=== PATIENT | female | born 1965 | race Caucasian/White ===

== ENCOUNTER 2020-06-02 08:30 | Outpatient (CLI) | payer OTHER, SELFPAY | END 2020-06-02 08:31 | LOC: ANHCOVIDVC 08:30 | PROVIDERS: PCP Family Medicine | DX: Z23 Encounter for immunization (principal) | CPT/HCPCS: 0001A; 91300 ==

== ENCOUNTER 2020-06-23 08:22 | Outpatient (CLI) | payer OTHER, SELFPAY | END 2020-06-23 08:23 | disposition home or self-care (01) | LOC: ANHCOVIDVC 08:22 | PROVIDERS: PCP Family Medicine | DX: Z23 Encounter for immunization (principal) | CPT/HCPCS: 0002A; 91300 ==

== ENCOUNTER 2022-03-01 19:17 | Emergency (ER) | payer OTHER, SELFPAY ==
--- NOTE | ~2022-03-01 | XR_ITS ---
EXAMINATION: XR chest 1V portable Exam Date/Time: 03/01/2022 20:16 GROUND WOOD SUPERVISOR HISTORY: Dysphagia x 1 day hx esophageal surgeries to remove food Comparison: None available. RESULT: Lines, tubes, and devices: None. Lungs and pleura: Clear. Cardiomediastinal silhouette: Unremarkable. Other: No acute osseous or upper abdominal finding. IMPRESSION: No acute cardiopulmonary process. Reviewed, dictated and finalized at location K. [place] WOOD SUPERVISOR
[2022-03-01 19:34] VITALS: BP 140/88; PULSE 90; RESP 16; TEMP 36.9; O2SAT 98
--- NOTE | 2022-03-01 19:52 | ED.GENADULT ---
HPI - General Adult General Chief complaint: Unspecified Stated complaint: feels like something is stuck in throat Source: patient Mode of arrival: ambulatory Limitations: no limitations History of Present Illness HPI narrative: 57-year-old female with a history of esophageal stricture presents to the ER with -- dysphagia since yesterday. Today the patient presents with food stuck in her throat. She is unable to drink any solids or liquids. No vomiting. No abdominal pain. She had stricture of the esophagus which was dilated in July of this year. No coughing or aspiration of food. Onset (ago): day(s) ( Difficulties swallowing started yesterday.) Relieving factors: none Exacerbating factors: none Related Data Home Medications Medication Instructions Recorded Confirmed pantoprazole 40 mg tablet,delayed 40 mg PO DAILY 03/01/22 03/01/22 release Allergies Allergy/AdvReac Type Severity Reaction Status Date / Time Penicillins Allergy Unknown Verified 10/05/12 12:48 Review of Systems Review of Systems: All systems reviewed & are unremarkable except as noted in HPI and below Constitutional: Constitutional: Reports as per HPI and Reports no additional constitutional complaints Eyes: Eyes: Reports as per HPI and Reports no additional eye complaints ENT: Reports system reviewed and no additional complaints, except as documented and Reports as per HPI Cardiovascular: Cardiovascular: Reports as per HPI and Reports no additional cardiovascular complaints Respiratory: Respiratory: Reports as per HPI and Reports no additional respiratory complaints Gastrointestinal: Gastrointestinal: Reports as per HPI and Reports no additional gastrointestinal complaints Comments: Dysphagia with food stuck in her throat. On attempting to drink fluids she regurgitates the fluids out. Genitourinary: Genitourinary: Reports no additional female genitourinary complaints and Reports as per HPI Musculoskeletal: Musculoskeletal: Reports no additional musculoskeletal complaints and Reports as per HPI Integumentary/Breasts: Skin/Breast: Reports system reviewed and no additional complaints, except as docu and Reports as per HPI Neurologic: Reports system reviewed and no additional complaints, except as documented and Reports as per HPI Psychiatric: Psychiatric: Reports no additional psychiatric complaints and Reports as per HPI Endocrine: Endocrine: Reports no additional endocrine complaints and Reports as per HPI Hematologic/Lymphatic: Hematologic/Lymphatic: Reports no additional hematologic/lymphatic complaints and Reports as per HPI Allergic/Immunologic: Allergic/Immunologic: Reports no additional allergic/immunologic complaints and Reports as per HPI [facility] Past Medical History Medical History (Updated 03/01/22 @ 21:21 by Ham Potter MD) FH: cholecystectomy Surgical History Surgical History (Updated 03/01/22 @ 20:03 by Ham Potter MD) Gastric bypass status for obesity H/O: hysterectomy S/P dilatation of esophageal stricture Family History Family History (Updated 10/17/15 @ 23:19 by DOCTOR UNKNOWN) Grandparent Family history of malignant neoplasm, Onset Age: 80 Mother Family history of diabetes mellitus in first degree relative Social History Social History Smoking status: Never smoker Alcohol intake: current Exam Const: General: healthy appearing and no acute distress Nutritional Appearance: well nourished and obese Orientation/consciousness: patient oriented x3 Limitations: no limitations HENMT: Head: normal to inspection Ears: external ears normal Face/Nose/Sinus: Normal external nose present Face and sinus: normal facial exam Mouth: Yes Normal oral and palatal mucosa present Throat: posterior oropharynx normal Eyes: Conjunctivae: conjunctivae normal Pupils: Equal, round and reactive pupils present EOM: EOMs intact bilaterally Direct Ophthalmoscopy: no photophobia Neck:
--- NOTE | 2022-03-01 20:04 | ECG_ITS ---
Measurements Intervals [place] Rate: 58 P: 16 DE: 164 QRS: -13 QRSD: 102 T: 1 QT: 426 QTc: 421 Interpretive Statements SINUS BRADYCARDIA NO PREVIOUS ECG AVAILABLE FOR COMPARISON Electronically Signed On 03-02-2022 19:15:31 SOFTBALL COACH by Connie Wolff M.D.
[2022-03-01 20:30] LABS: Basophils Absolute Auto 0.04 K/mm3 (0.00-0.10); Basophils Percent Auto 0.7 % (0.0-1.0); Eosinophils Absolute Auto 0.41 K/mm3 (0.02-0.50); Eosinophils Percent Auto 6.8 % (1.0-6.0); Hematocrit 41.9 % (35.0-49.0); Hemoglobin 13.9 g/dL (12.0-15.0); Immature Granulocyte Absolute 0.01 K/mm3 (0.00-0.00); Immature Granulocyte Percent A 0.2 % (0.0-0.0); Lymphocytes Absolute Auto 2.26 K/mm3 (1.10-4.50); Lymphocytes Percent Auto 37.7 % (18.0-42.0); Mean Corpuscular HGB Conc 33.2 g/dL (32.0-36.0); Mean Corpuscular Hemoglobin 29.8 pg (27.0-31.0); Mean Corpuscular Volume 89.9 fL (78.0-102.0); Mean Platelet Volume 11.2 fl (9.2-11.8); Monocytes Absolute Auto 0.46 K/mm3 (0.10-0.90); Monocytes Percent Auto 7.7 % (2.0-11.0); Neutrophils Absolute Auto 2.8 K/mm3 (1.7-7.2); Neutrophils Percent Auto 46.9 % (50.0-70.0); Platelet Count Result 235 K/mm3 (150-420); Red Blood Count 4.66 M/mm3 (4.20-5.40); Red Cell Distribution Width 13.1 % (11.6-14.4)
[2022-03-01 20:44] LABS: Partial Thromboplastin Time 30.5 SEC (23.90-30.70); Prothrombin Time 10.9 Seconds (9.50-12.10)
[2022-03-01 20:45] LABS: Add Urine Microscopic? YES; Appearance Urine Clear (Clear); Bilirubin Urine Negative (Negative); Blood Urine Negative (Negative); Color Urine Light Yellow (Yellow); Glucose Urine UA Negative (Negative); Ketones Urine Negative (Negative); Leukocyte Esterase Ur Trace LEU/UL (Negative); Nitrate Urine Negative (Negative); Protein Urine Negative (Negative); Specific Grav Ur <= 1.005 (1.010-1.020); Urobilinogen Urine 0.2 mg/dL (0.2-1.0)
[2022-03-01 20:47] LABS: Alanine Aminotransferase 30 U/L (14-59); Albumin Level 3.6 g/dL (3.4-5.0); Alkaline Phosphatase 87 U/L (46-116); Anion Gap 8 mmol/L (8-16); Aspartate Amino Transferase 11 U/L (15-37); Bilirubin,Total 0.3 mg/dL (0.00-1.00); Blood Urea Nitrogen 9 mg/dL (7-18); Calcium 8.7 mg/dL (8.5-10.1); Carbon Dioxide 27 mmol/L (21-32); Chloride 107 mmol/L (98-108); Estimated CRCL calculation 83 ml/min; Estimated Glomerular Filt Rate > 60; Glucose 124 mg/dL (70-99); Lactic Acid Reflex 1.5 mmol/L (0.4-2.0); Lipase 228 U/L (73-393); Osmolality Calculated 293 mOsm/kg (285-295); Sodium 142 mmol/L (136-145); Troponin I 7.6 ng/L (0.00-60.4)
[2022-03-01 20:50] LABS: Bacteria Urine None seen /hpf; RBC Urine 0-2 /hpf (0-2); Squamous Epithelial Cell Urine Rare /hpf (Few); WBC Urine 0-3 /hpf (0-3)
[2022-03-01] MEDS: LACTATED RINGERS 1,000 ML 100 ML IV CONT (21:40)
[2022-03-01 21:56] VITALS: BP 140/66; PULSE 60; RESP 16; TEMP 37; O2SAT 98
[2022-03-01 23:37] VITALS: BP 124/56; PULSE 56; RESP 16; TEMP 36.5; O2SAT 96
--- NOTE | 2022-03-01 23:59 | PC.NURSE ---
pt alert and oriented. no shortness of breath noted. no respiratory distress noted.
== END 2022-03-02 | disposition short-term general hospital (02) ==
PROVIDERS: Emergency Provider Internal Medicine Critical Care Medicine
DX: R13.10 Dysphagia, unspecified (principal); K22.2 Esophageal obstruction
CPT/HCPCS: 36415; 71045; 80053; 81001; 83605; 83690; 84484; 85025; 85610; 85730; 93005; 96360; 96361; 99285; J7120

== ENCOUNTER 2024-10-13 07:32 | Outpatient (CLI) | payer OTHER, SELFPAY ==
--- OUTSIDE RECORDS SUMMARY | 2024-10-13 07:44 | XMS_ITS | Encounter Summary ---
Author Organization [facility] Address [address] [place] [address] Care Team Providers Care Tub Rider Name Role Phone Rosei Carmichael MD Primary Care Provider [phone] Encounter Details Date Type Department Care Team (Late st Contact Info) Description 11/10/2017 [address] [place] [address] Reza Harmon MD [address] [place] [address] Social History Tobacco Use Types Packs/Day Years Used Date Smoking Tobacco: Never Smokeless Tobacco: Never Alcohol Use Standard Drinks/Week Comments No 0 (1 standard drink = 0.6 oz pur e alcohol) Comments No Sex and Gender Information Value Date Recorded Sex Assigned at Not on file Legal Sex Female 10:28 AM CDT Gender Identity Not on file Sexual Orientation Not on file documented as of this encounter Plan of Treatment Not on file documented as of this encounter Visit Diagnoses Not on filedocumented in this encounter Care Teams Tub Rider Relationship Specialty Start Date End Date Rosie Carmichael MD PCP - General Family Practice 09/15/17 documented as of this encounter
--- OUTSIDE RECORDS SUMMARY | 2024-10-13 07:44 | XMS_ITS | Encounter Summary ---
Author Organization [facility] Address [address] [place] [address] Phone Care Team Providers Care Experimental Display Builder Name Role Phone Rosie Carmichael MD Primary Care Provider [phone] Lubna Yousif MD Unavailable [phone] Rossana Ansari APRN, SHEET ROCK FINISHER Unavailable Reason for Visit * Reason Comments Medication Refill Encounter Details Date Type Department Care Team (Late st Contact Info) Description 12/29/2022 Refill [facility] [address] [place] [address] Lubna Yousif MD [address] [place] [address] Medication Refill Social History Tobacco Use Types Packs/Day Years Used Date Smoking Tobacco: Never Smokeless Tobacco: Never Alcohol Use Standard Drinks/Week Comments Not Currently 0 (1 standard drink = 0.6 oz pur e alcohol) Sexually Active Control Partners Comments Not Currently Comments No Sex and Gender Information Value Date Recorded Sex Assigned at Not on file Legal Sex Female 10:41 PM CDT Gender Identity Not on file Sexual Orientation Not on file documented as of this encounter Miscellaneous Notes * Telephone Encounter - Raven Woodard RN - 12/30/2022 8:48 AM CDT Medication refilled and signed per [facility] chronic medication standing order for pediatric and adult patients. documented in this encounter Plan of Treatment Not on file documented as of this encounter Visit Diagnoses Not on filedocumented in this encounter Care Teams Experimental Display Builder Relationship Specialty Start Date End Date Rosie Carmichael MD [address] [place] [address] [place] [address] PCP - General Sand Tester 04/08/21 Lubna Yousif MD [address] [place] [address] Consulting Physician Gastroenterology 06/04/21 Rossana Ansari APRN, SHEET ROCK FINISHER [address] [place] [address] Nurse Practitioner Advanced Practice Nurse 03/22/24 documented as of this encounter
--- OUTSIDE RECORDS SUMMARY | 2024-10-13 07:44 | XMS_ITS | Clinical Summary ---
Author Organization [facility] Address [address] [facility] [address] [place] [address] Phone Care Team Providers Care Extractive Metallurgist Name Role Phone Rosie Carmichael MD Primary Care Provider [phone] Allergies Active Allergy Reactions Criticality Noted Date Comments Penicillins Rash Low 09/15/2017 Medications omeprazole (PriLOSEC) 40 mg Capsule, Delayed Release(E.C.) Take 40 mg by mouth daily. Active HYDROcodone-acet aminophen (HYCET) 7.5-325 mg/15 mL Solution Take 15 mL by mouth every 6 hours as needed for Pain, Severe. Max Daily Amount: 60 mL 300 mL 10/06/2017 2:06 PM CDT 10/05/2017 Active ondansetron (ZOFRAN ODT) 4 mg Tablet, Rapid Dissolve Place 1 Tablet (4 mg) under tongue every 6 hours as needed for Nausea. 10 Tablet 10/06/2017 2:06 PM CDT 10/05/2017 Active Active Problems Problem Noted Date Diagnosed Date Type 2 diabetes mellitus wit hout complication, without long-term current use of insulin 10/05/2017 Gastroesophageal reflux disease without esophagi tis 10/05/2017 Family History Medical History Relation Name Comments Diabetes Mother Relation Name Status Comments Father Alive Mother Alive Social History Tobacco Use Types Packs/Day Years Used Date Smoking Tobacco: Never Smokeless Tobacco: Never Alcohol Use Standard Drinks/Week Comments No 0 (1 standard drink = 0.6 oz pur e alcohol) Comments No Sex and Gender Information Value Date Recorded Sex Assigned at Not on file Legal Sex Female 10:28 AM CDT Gender Identity Not on file Sexual Orientation Not on file Last Filed Vital Signs Vital Sign Reading Time Taken Comments Blood Pressure 153/92 10/06/2017 4:00 PM CDT Pulse 96 10/06/2017 4:00 PM CDT Temperature 37.1 C (98.8 F) 10/06/2017 4:00 PM CDT Respiratory Rate 18 10/06/2017 4:00 PM CDT Oxygen Saturation 100% 10/06/2017 4:00 PM CDT Inhaled Oxygen Concentration - - Weight 139.7 kg (308 lb) 10/05/2017 11:05 AM CDT Height 165.1 cm (5' 5) 10/05/2017 11:05 AM CDT Body Mass Index 51.25 10/05/2017 11:05 AM CDT Plan of Treatment Health Maintenance Due Date Last Done Comments DIABETES ANNUAL FOOT EXAM 1985 DIABETES ANNUAL RETINAL EXAM 1985 DIABETES MICROALBUMIN ANNUAL SCREEN 1985 LDL CHOLESTEROL ANNUAL 1985 DTAP/TDAP/TD VACCINES (1 - Tdap) 1986 HEPATITIS B VACCINES (1 of 3 - 19+ 3-dose series) 1986 HPV/Cotest (21-29) 02/17/1988 CERVICAL CANCER SCREENING 1997 HPV/Cotest (30-65) 1997 PAP SMEAR 1997 BREAST CANCER SCREENING 2007 FIT-DNA Q 3 years 02/17/2012 FIT/FOBT Q 1 year 02/17/2012 Flex Sig/CT Colonography Q 5 years 02/17/2012 ZOSTER VACCINE (1 of 2) 2017 DIABETES HBA1C Q 6 MONTHS 04/08/2018 10/06/2017 INFLUENZA VACCINE (#1) 2024 COLORECTAL SCREENING 09/24/2027 09/23/2017, 09/24/19 Colorectal Cancer Screening 09/24/2027 Medical Devices Implanted Type Area Bus Transportation Manager Device Identifier Shelf Expiration Date Model / Serial / Lot Seamguard Endogia 60 Blck [id number] - [id number] Implanted:Qty : 2 on 10/05/2017 by Reza Harmon MD at [facility] Biological N/A: Stomach [employer] 03/20/2020 [id number] / / [id number] Seamguard Endogia 60 Prpl [id number] - [id number] Implanted:Qty : 2 on 10/05/2017 by Reza Harmon MD at [facility] Biological N/A: Stomach [employer] 05/18/2020 [id number] / / [id number] Seamguard Endogia 60 Prpl [id number] - [id number] Implanted:Qty : 1 on 10/05/2017 by Reza Harmon MD at [facility] Biological N/A: Stomach [employer] 04/20/2020 [id number] / / [id number] Procedures Procedure Name Priority Date/Time Associated Diagnosis Comments HEMOGLOBIN A1C Routine 10/06/2017 3:30 AM CDT COLONOSCOPY REPORT 09/23/2017 10 :22 AM CDT from Last 3 Months or Most Recently Relevant to Health Maintenance Results * (ABNORMAL) HEMOGLOBIN A1C (10/06/2017 3:30 AM CDT) HEMOGLOBIN A1C 9.2(H) 4.8 - 5.9 % 10/06/2017 5:14 AM CDT [facility] EST. AVG GLUCOSE, A1C 217 mg/dL 10/06/2017 5:14 AM CDT [facility] Blood Venipuncture / Unknown 10/06/2017 3:30 AM CDT 10/06/2017 4:45 AM CDT Narrative [facility] - 10/06/2017 5:14 AM CDT HGB A1C INTERPRETATION NORMAL: <5.7% PRE-DIABETES: 5.7 - 6.4% DIABETES: 6.5% OR GREATER us Reza Harmon MD CHEMISTRY ORDERABLES Final Resul t [facility] CLIA # [id number] [facility] [address] [place] [address] * COLONOSCOPY REPORT (09/23/2017 10:22 AM CDT) Narrative Procedure Note Reza Harmon MD - 09/23/2017 10:21 AM CDT [facility] Endoscopy Patient Name: Zulma Villagomez Procedure Date: 09/23/2017 Date of : 1965 Admit Type: Outpatient Attending MD: Reza Harmon MD Procedure: Colonoscopy Indications: Screening for malignant neoplasm in the colon Providers: Reza Harmon MD Referring MD: Complications: No immediate complications. Procedure: Informed consent was obtained for the procedure, including moderate sedation after risks were discussed. Based on the pre-procedure assessment, including review of the patient?s medical history, medications, allergies, and review of systems, the patient was deemed to be an appropriate candidate for sedation. A timeout was performed. Continuous ECG monitoring, pulse oximetry, blood pressure monitoring, and direct observation were performed. The Colonoscope was introduced through the anus and advanced to the cecum, identified by appendiceal orifice and ileocecal valve. The colonoscopy was performed without difficulty. The patient tolerated the procedure well. The quality of the bowel preparation was adequate. Estimated Blood Loss: Estimated blood loss: none. Findings: Three semi-pedunculated polyps were found in the recto-sigmoid colon and mid descending colon. The polyps were small in size. These polyps were removed with a cold biopsy forceps. Resection and retrieval were complete. The exam was otherwise without abnormality. Impression: - Two small polyps at the recto-sigmoid colon and in the mid descending colon, removed with a cold biopsy forceps. Resected and retrieved. - The examination was otherwise normal. Recommendation: - Await pathology results. - Repeat colonoscopy in 10 years. Procedure Code(s): --- Professional --- 54702, Colonoscopy, flexible; with biopsy, single or multiple Diagnosis Code(s): --- Professional --- Z12.11, Encounter for screening for malignant neoplasm of colon D12.7, Benign neoplasm of rectosigmoid junction D12.4, Benign neoplasm of descending colon CPT copyright 2016 [employer]. All rights reserved. The codes documented in this report are preliminary and upon test engine mechanic review may be revised to meet current compliance requirements. Reza Harmon MD 09/23/2017 10:21:07 AM Number of Addenda: [address] [address] Reza Harmon MD GI PROCEDURE ORDERABLES Final Re sult from Last 3 Months or Most Recently Relevant to Health Maintenance Insurance mobintent O OPEN ACCESS RX [facility] [employer] Advance Directives For more information, please contact: [phone] * Full Code (Latest Code Status on File) Date Activated Date Inactivated Comments 10/05/2017 11:11 AM 10/06/2017 6:30 PM * Full Code Date Activated Date Inactivated Comments 10/05/2017 7:43 AM 10/05/2017 11:11 AM * Full Code Date Activated Date Inactivated Comments 09/23/2017 7:32 AM 09/23/2017 12:43 PM Care Teams Extractive Metallurgist Relationship Specialty Start Date End Date Rosie Carmichael MD PCP - General Family Practice 09/15/17
--- OUTSIDE RECORDS SUMMARY | 2024-10-13 07:44 | XMS_ITS | Encounter Summary ---
Author Organization [facility] Address [address] [place] [address] Phone Care Team Providers Care Acoustic Sensor Operator Name Role Phone Rosie Carmichael MD Primary Care Provider Lubna Yousif MD Unavailable [phone] Rossana Ansari APRN, CNP Unavailable Reason for Visit * Reason Comments Medication Refill Encounter Details Date Type Department Care Team (Late st Contact Info) Description 08/13/2024 Refill [facility] - Gastroenterology - [place] [address] [place] [address] Rossana Ansari APRN, MERCHANDISING EXECUTION ASSOCIATE [address] [place] [address] Medication Refill Social History Tobacco Use Types [...] Telephone Encounter - Raven Woodard RN - 08/14/2024 8:46 AM CDT Medication refilled and signed per [facility] chronic medication standing order for pediatric and adult patients. documented in this encounter Plan of Treatment Not on file documented as of this encounter Visit Diagnoses Diagnosis Eosinophilic esophagitis Gastroesophageal reflux disease, unspecified whether esophagitis present documented in this encounter Care Teams Acoustic Sensor Operator Relationship Specialty Start Date End Date ThomRosie Garcia MD [address] [place] [address] [place] [address] PCP - General Template Layout Worker 04/08/21 Lubna Yousif MD [address] [place] [address] Consulting Physician Gastroenterology 06/04/21 Rossana Ansari APRN, MERCHANDISING EXECUTION ASSOCIATE [address] [place] [address] Nurse Practitioner Advanced Practice Nurse 03/22/24 documented as of this encounter
--- OUTSIDE RECORDS SUMMARY | 2024-10-13 07:44 | XMS_ITS | Clinical Summary ---
Author Organization [facility] Address [address] [address] Phone Care Team Providers Care Outside Event Sales Specialist Name Role Phone Rosie Carmichael MD Primary Care Provider [phone] Lubna Yousif MD Unavailable [phone] Rossana Ansari APRN, FILTER WORKER Unavailable Allergies Active Allergy Reactions Criticality Noted Date Comments Penicillins Rash Low 09/15/2017 Medications mometasone (ASMANEX HFA) 200 MCG/ACT Aerosol take 2 Puffs by inhalation 2 times daily. 18 g 2 Active Dupixent 300 MG/2ML Solution Prefilled SyringeIndicati ons:Eosinophili c Esophagitis 300 mg by Injection route once a week. TUESDAY Indications: Eosinophilic Esophagitis 3 Active fluticasone (Flovent HFA) 220 MCG/ACT AerosolIndicati ons:Eosinophili c esophagitis,Eso phageal obstruction due to food impaction 2 puffs to the back of the throat after holding the breath and then swallowing it immediately with a small sip of water twice a day 12 g 3 4 Active Additional Information Patient not taking.Reported on 06/15/2024 pantoprazole (PROTONIX) 40 MG Tablet Delayed ResponseIndicat ions:Eosinophil ic esophagitis,Gas troesophageal reflux disease, unspecified whether esophagitis present Take 1 tablet by mouth once daily 90 Tablet 05/27/202 5 Active Active Problems Problem Noted Date Diagnosed Date Esophageal obstruction due to food impaction Eosinophilic esophagitis 03/02/2022 Oropharyngeal dysphagia 04/29/2021 Gastroesophageal reflux disease 04/29/2021 Encounters Date Type Department Care Team Description [facility] [address] [place] [phone] Rossana Ansari APRN, RONNI 08/21/2024 Telephone [facility] [address] [place] [phone] Rossana Ansari APRN, RONNI 08/13/2024 Refill [facility] [address] [place] [address] Rossana Ansari APRN, FILTER WORKER Medication Refill from Last 3 Months Immunizations Immunization Administration Dates Next Due Covid-19, Mrna, Lnp-s, Pf, 3 0 Mcg/0.3 Ml Dose ([place]) 02/05/2021,06/23/2020,06/02/2020 Family History Medical History Relation Name Comments Cancer Father lung Chronic Obstructive Pulmonary Disease Father Cancer Maternal Grandmother Diabetes Mother High Cholesterol Mother Hypertension Mother Cancer Paternal Grandmother Relation Name Status Comments Father Alive Maternal Grandmother Mother Paternal Grandmother Social History Tobacco Use Types Packs/Day Years Used Date Smoking Tobacco: Never Smokeless Tobacco: Never Tobacco Cessation:Counseling Given: Not Answered Alcohol Use Standard Drinks/Week Comments Not Currently [...] Sign Reading Time Taken Comments Blood Pressure 154/89 07/03/2024 8:48 AM CDT Pulse 70 07/03/2024 8:48 AM CDT Temperature 36 C (96.8 F) 04/04/2024 1:27 PM WATER TREATMENT PLANT ENGINEER Respiratory Rate 18 07/03/2024 8:48 AM CDT Oxygen Saturation 98% 07/03/2024 8:48 AM CDT Inhaled Oxygen Concentration - - Weight 111.1 kg (245 lb) 06/15/2024 3:15 PM CDT Height 165.1 cm (5' 5) 06/15/2024 3:15 PM CDT Body Mass Index 40.77 06/15/2024 3:15 PM CDT Plan of Treatment Health Maintenance Due Date Last Done Comments Hepatitis C Virus (HCV) Screening 1965 Mammogram 1965 TdaP Immunization 1965 Hepatitis B Immunization (1 of 3 - 19+ 3-dose series) 1986 Cologuard 02/17/2012 Colonoscopy 02/17/2012 Colorectal Cancer Screening 02/17/2012 Immunochemical Fecal Occult Blood 02/17/2012 Pneumococcal Immunization (50+ years) (1 of 1 - PCV) 2017 Zoster Immunization (1 of 2) 2017 SARS-COV-2 Immunization ( - season) 2023 07/25/2023, 01/21/2022, 02/05/2021, Additional history exists Influenza Immunization (#1) 2024 Respiratory Syncytial Virus (RSV) Immunization (Adult) (1 - 1-dose 75+ series) 2042 Human Papillomavirus (HPV) Immunization Aged Out No longer eligible based on patient's age to complete this topic Meningococcal Immunization (ACWY) Aged Out No longer eligible based on patient's age to complete this topic Rotavirus Immunization Aged Out No lo nger eligible based on patient's age to complete this topic Insurance [facility] Advance Directives * Full Code (Latest Code Status on File) Date Activated Date Inactivated Comments 03/02/2022 1:01 AM 03/02/2022 6:51 PM CPR-Full Treatment: FULL ARREST: Attempt Resuscitation/CPR wit intubation and mechanical ventilation. PRE-ARREST: Use entire range of life support measures to stabilize the patient. Care Teams Outside Event Sales Specialist Relationship Specialty Start Date End Date Rosie Carmichael MD [address] [place] [address] [place] [address] PCP - General Field Marketing Director 04/08/21 Lubna Yousif MD [address] [place] [address] Consulting Physician Gastroenterology 06/04/21 Rossana Ansari APRN, FILTER WORKER [address] [place] [address] Nurse Practitioner Advanced Practice Nurse 03/22/24
--- OUTSIDE RECORDS SUMMARY | 2024-10-13 07:45 | XMS_ITS | Encounter Summary ---
Author Organization [facility] Address [address] [place] [address] Care Team Providers Care Tractor Mechanic Helper Name Role Phone Rosie Carmichael MD Primary Care Provider [phone] Encounter Details Date Type Department Care Team (Late st Contact Info) Description 09/15/2017 [address] [place] [address] Reza Harmon MD [address] [place] [address] Social History Tobacco Use Types Packs/Day Years [...] on filedocumented in this encounter Care Teams Tractor Mechanic Helper Relationship Specialty Start Date End Date Rosie Carmichael MD PCP - General Family Practice 09/15/17 documented as of this encounter
--- OUTSIDE RECORDS SUMMARY | 2024-10-13 07:45 | XMS_ITS | Data Portability ---
Author Organization [facility] [employer], Main Office Address [address] [place] [address] Assessment No assessment recorded. Plan of Treatment Reminders Order Date Submit Date Provider Last Modified By Organization Details Last Modified Time Details Appointments None recorded. Lab glycohemogl obin, total, blood [address] (Lab), [address] [place], [address], 5 08:20:59 lipid panel, serum [address] (Lab), [address] [place], [address], 5 08:20:59 CMP, serum or plasma [address] (Lab), [address] [place], [address], 5 08:21:00 urinalysis, dipstick 2024 025 NE[facility], [address] [place] [address], [address], 5 15:25:10 CBC w/ auto diff [address] (Lab), [address] [place], [address], 5 08:20:59 TSH, serum or plasma 2024 025 [email or web address] [facility] (Lab), [address] [place], [address], 08:20:[address] referral - Please call patient to schedule an appointment . Thank you. 2024 025 [email or web address] [facility], [place], [facility], [address] [place], [address], 09:37:06 Procedures None recorded. Surgeries None recorded. Imaging MAMMO, screening, digital, bilateral - Please call patient to schedule. [address] [facility] ([facility]), [address] [place], [address], 17:19:53 Medication Orders Bactrim DS 800 mg-160 mg tablet 2024 [facility], [address] [place], [address], 15:14:59 Patient TargetsNo targets recorded. Patient InstructionsNo instructions recorded. 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 Thank you. Referring Physician: Malia Brand, Family Medicine, Encounter Date: 07/04/2024 Results Created Date Observation Date Name Description Value Unit Range Abnormal Flag Note LastModifiedBy Organization Detail LastModifiedTime 07/05/1907/04/2024 urina lysis , dipst ick Leukocytes (reference range: negative marianela/ l) Large Not Available s_[address], [address], 07/04/2024 15:14:48 07/05/19 25 07/04/2024 urina lysis , dipst ick Nitrite (reference rage: negative mg/dl) negati ve Not Available [address], [address], 07/04/2024 15:14:48 07/05/19 25 07/04/2024 urina lysis , dipst ick Urobilinogen (reference range: 0.2-1 mg/dl) 0.2 Not Available [address], [address], 07/04/2024 15:14:48 07/05/19 25 07/04/2024 urina lysis , dipst ick Protein (reference range: negative mg/dl) Large Not Available [address], [address], 07/04/2024 15:14:48 07/05/19 25 07/04/2024 urina lysis , dipst ick pH (reference range: 5-7) 5.5 Not Available [address], [address], 07/04/2024 15:14:48 07/05/19 25 07/04/2024 urina lysis , dipst ick Blood (reference range: negative Arthur/ l) Large Not Available [address], [address], 07/04/2024 15:14:48 07/05/19 25 07/04/2024 urina lysis , dipst ick Specific Preston (reference range: 1.005-1.030) 1.020 Not Available [address], [address], 07/04/2024 15:14:48 07/05/19 25 07/04/2024 urina lysis , dipst ick Ketone (reference range: negative mg/dl) Trace Not Available [facility], [address], 07/04/2024 15:14:48 07/05/19 25 07/04/2024 urina lysis , dipst ick Bilirubin (reference range: negative mg/dl) Negati ve Not Available [address], [address], 07/04/2024 15:14:48 07/05/19 25 07/04/2024 urina lysis , dipst ick Glucose (reference range: negative mg/dl) Negati ve Not Available [address], [address], 07/04/2024 15:14:48 07/05/19 25 07/04/2024 urina lysis , dipst ick Appearance Slight ly Cloudy Not Available [address], [address], 07/04/2024 15:14:48 07/05/19 25 07/04/2024 urina lysis , dipst ick Color Dark Yellow Not Available [address], [address], 07/04/2024 15:14:48 07/13/19 25 07/12/2024 imagi ng/di agnos tic resul t No observ ation record ed. [facility] [address] [place], [address], 07/12/2024 17:20:51 07/13/1907/12/2024 MAMMO , scree john, digit al, bilat eral No observ ation record ed. [email or web address] [facility] [address] [place], [address], 07/13/2024 11:57:17 Result Notes None recorded. Problems Name Problem SNOMED Code Status Onset Date Resolution Date Notes Provider Name and Address Organization Details Recorded Time Gastroesop hageal reflux disease 890715589 Active Not Available [facility] 07:43:56 Morbid obesity 435736279 Active Not Available [facility] 3 07:43:56 Hypertensi ve disorder 88357038 Completed 07/04/2024 KIKA Bernstein [address], [place], [address] , [employer] 5 14:59:25 Impaired fasting glycemia 838073415 Active Not Available [facility] 3 07:43:56 Obesity 428933440 Active Not Available [facility] 3 07:43:56 Essential hypertensi on 10938692 Active Not Available [facility] 07:43:56 Acute cholecysti tis 75495644 Completed 07/04/2024 KIKA Bernstein [address], [place], [address] , [employer] 5 14:59:23 Pain of elbow region 95060342 Completed 07/04/2024 KIKA Bernstein [address], [place], [address] , [employer] 5 14:59:18 Skin lesion 68375935 Active 2024 KIKA Bernstein [address], [place], [address] , [employer] 5 15:03:02 Cystitis 72422034 Active 2024 KIKA Bernstein [address], [place], [address] , [employer] 5 15:14:01 Problem Notes None recorded. Procedures Surgical History Date Name Laterality Status Provider Name and Address Organization Details Recorded Time 07/04/19 EGD completed Karen Torres CNA [employer] 07/04/2024 14:50:16 04/13/19 24 EGD completed Joe Campbell RN [facility] 04/14/2023 15:46:56 07/15/19 23 EGD completed Joe Campbell RN [facility] 07/14/2022 17:21:15 09/20/19 20 laparoscopic sleeve gastrectomy completed Karen Torres CNA [facility] 07/04/2024 14:51:30 01/22/20 17 Hysterectomy completed Karen Torres CNA [facility] 07/04/2024 14:51:03 Imaging Results None recorded. Procedure Notes None recorded. Medical Equipment None Reported. Allergies Allergen ID Allergen Name Allergen Category Reaction Reaction Severity Criticality Documentation Date Start Date Code Code System Note Provider Name and Address Organization Details Recorded Time Product containin g penicilli n (product) medicatio n Not available Not available Not available 05/19/2022 58148 [id number] SNOMED Not Available [facility] 07:46:40 Medications Name Sig Start Date Stop Date Status Note LastModified by Organization Details LastModified Time cyclobenzap rine 10 mg tablet Take 1 tablet 3 times a day by oral route. 05/25 completed Not Available Not Available Not Available lisinopril 20 mg-hydrochl orothiazide 12.5 mg tablet Take 1 tablet every day by oral route. 07/06 completed Not Available Not Available Not Available hydrocodone 5 mg-acetamin ophen 325 mg tablet 07/06 completed Not Available Not Available Not Available sucralfate 1 gram tablet TAKE 1 TABLET BY MOUTH EVERY 6 HOURS 07/04 completed Not Available Not Available Not Available ciprofloxac in 500 mg tablet 07/06 completed Not Available Not Available Not Available sulfamethox azole 800 mg-trimetho prim 160 mg tablet TAKE 1 TABLET BY MOUTH EVERY 12 HOURS active Not Available Not Available No t Available omeprazole 40 mg capsule,del ayed release TAKE 1 CAPSULE BY MOUTH ONCE DAILY 03/09 completed Not Available Not Available Not Available tramadol 50 mg tablet Take 1-2 TABLET EVERY 6 HOURS by oral route. active Not Available Not Available No t Available ondansetron 8 mg disintegrat ing tablet 07/06 completed Not Available Not Available Not Available oxycodone-a cetaminophe n 5 mg-325 mg tablet 07/06 completed Not Available Not Available Not Available pantoprazol e 40 mg tablet,patti yed release TAKE 1 TABLET BY MOUTH ONCE DAILY active Not Available Not Available No t Available progesteron e micronized 200 mg capsule 07/06 completed Not Available Not Available Not Available diazepam 10 mg tablet active Not Available Not Available No t Available lisinopril 10 mg-hydrochl orothiazide 12.5 mg tablet Take 1 tablet every day by oral route. active Not Available Not Available No t Available ondansetron 4 mg disintegrat ing tablet 05/25 completed Not Available Not Available Not Available metformin ER 500 mg tablet,exte nded release 24 hr 05/25 completed Not Available Not Available Not Available hydrocodone 7.5 mg-acetamin ophen 325 mg/15 mL oral solution 05/25 completed Not Available Not Available Not Available Flovent HFA 220 mcg/actuati on aerosol inhaler USE 2 PUFFS TO THE BACK OF THE THROAT AFTER HOLDING THE BREATH AND THEN SWALLOWIN G IT IMMEDIATE LY WITH A SMALL SIP OF WATER TWICE DAILY 07/04 completed Not Available Not Available Not Available OneTouch Ultra2 Meter kit 05/25 completed Not Available Not Available Not Available metformin ER 500 mg 24 hr tablet,exte nded release (gastric retention) Take 2 tablets every day by oral route. 05/25 completed Not Available Not Available Not Available dexlansopra zole 60 mg capsule,bip hase delayed release TAKE 1 CAPSULE BY MOUTH ONCE DAILY 03/09 completed Not Available Not Available Not Available OneTouch Delica Lancets 33 gauge 05/25 completed Not Available Not Available Not Available Suprep Bowel Prep Kit 17.5 gram-3.13 gram-1.6 gram oral solution 05/25 completed Not Available Not Available Not Available OneTouch Ultra Blue Test Strip 05/25 completed Not Available Not Available Not Available Vitals Date Recorded Body mass index (BMI) Body height Oxygen saturation Oxygen saturation in Arterial blood by Pulse oximetry Heart rate Body temperature Body weight Systolic And Diastolic Provider Name and Address Organization Details Last Updated DateTime 2 41.4 kg/m2 165.1 cm 97 % 97 % 72 /min 97 [degF] 997550. 5 g 140/90 mm[Hg] Not Available [facility] 3 07:42:45 Date Recorded Body weight Body mass index (BMI) Body height Body temperature Heart rate Oxygen saturation Oxygen saturation in Arterial blood by Pulse oximetry Systolic And Diastolic Provider Name and Address Organization Details Last Updated DateTime 5 410056. 05 g 42.4 kg/m2 165.1 cm 97 [degF] 80 /min 97 % 97 % 160/88 mm[Hg] Karen Torres CNA [facility] [employer] [facility] 5 14:48:33 Date Recorded Body mass index (BMI) Body height Oxygen saturation Oxygen saturation in Arterial blood by Pulse oximetry Heart rate Body temperature Body weight Systolic And Diastolic Provider Name and Address Organization Details Last Updated DateTime 2 41.6 kg/m2 165.1 cm 98 % 98 % 64 /min 97 [degF] 796555. 09 g 180/110 mm[Hg] Not Available [facility] 3 07:42:45 Social History Question Answer Notes LastModified by [employer] Details LastModified Time Tobacco Smoking Status Never Smoker Karen Torres CNA [facility] [employer] [facility] 07/04/2024 14:49:35 What Is Your Level Of Caffeine Consumption? None Information not available 07/04/2024 What Is The Highest Grade Or Level Of School You Have Completed Or The Highest Degree You Have Received? [id number] Information not available 07/04/2024 Sex: Unknown Functional Status Question Answer Note LastModified by [employer] Details LastModified Time Do you use any illicit or recreational drugs? No Information not available 07/04/2024 What is your level of alcohol consumption? 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 Family History Relationship Description Onset Age of this Age Resolved Age Notes LastModified by Organization Details LastModified Time Mother Diabetes mellitus Not available 07/04 14:53:29 Mother Hypercholest erolemia [email or web address] Not available 07/04 14:53:42 Father Malignant neoplasm of lung Not available 07/04 14:53:53 Maternal Grandmother Leukemia Not available 14:54:08 Paternal Grandmother Malignant neoplasm of ovary Not available 07/04 14:54:27 Medical History No medical history recorded. Gynecological HistoryNo gynecological history recorded. Obstetrics History GPAL:G 0 P 0 0 0 0 Immunizations Vaccine Type Date Status Note Provider Nam e and Address Organization Details Recorded Time Tdap 07/04/2024 completed KIKA Bernstein [address] [facility], [facility] [address], [place], [address], [facility] [employer] [facility] 07/04/2024 15:22:24 Past Encounters Encounter ID Performer Location Encounter Start Date Encounter Closed Date Diagnosis/Indication Diagnosis SNOMED-CT Code Diagnosis ICD10 Code Diagnosis Note [id number] Rosie Carmichael MD [address] [place] [address] 04/03/2021 00:00:00 04/03/2021 16:18:33 [id number] Rosie Carmichael MD [address] [place] [address] 03/09/2022 00:00:00 03/09/2022 13:17:32 [id number] Linus Jones MD [address] [address] 07/04/2024 14:39:25 07/04/2024 15:24:32 Adult health examination 614286884 Z00.00 Patient is overall healthHeal th maintenanc e reviewedDi scussed diet and exercisePa tient questions answered Screening mammography 24 302652 Z12.31 8 years ago was last mammo. Has cysts on rt breast x 40 years Administra tion of tetanus vaccine 229401488 Z23 Skin lesion 02811859 L98 .9 right cheek, suspicious for squamous cell Essential hypertension 84512398 I10 does not take medication s, recommende d starting home BP log Obesity 374496403 E66.9 Hx of gastric sleeve, sees obesity specialist in September Cystitis 65153561 N30.90 Symptoms x 3 day +CVA tenderness Health Concerns Section Related Observation LastModified by Organization Detai ls LastModified Time None Recorded Concern Status LastModified by Organization Details LastModified Time None Recorded Advance Directives Directive None Recorded Payers Insurance Date Sequence Insurance Name Policy Number Policy Maurice Covered Member ID Maurice Member ID Guarantor Name 07/02/2024 1 [employer] - OPEN ACCESS Zulma LebronEdnamarina [id number] Zulma Villagomez Notes Date Note Type Note Provider Name and Address Organization Details Recorded Time 07/04/2024 text/html Concerns with a rough patch on her right cheek x 2 months, declines scabbing, itching, bleeding Has a small lump under her left eye that does bother her Has concerns with UTI symptoms - urgency, burning x 3 days History of hypertension, believes this is white coat syndrome, does not check BP at home Flu shot: OVID vaccines: x 4Tdap: 07/04/2024Mammo gram: orderedColonosc opy: 09/2019 Malia Brand, GROUT MACHINE TENDER [address] [facility], [facility] [address], [place], [address], [place] [facility] [id number] 07/04/2024 15:19:46 OBGyn Episode No OBEpisode recorded.
[2024-10-13 07:57] LABS: Hematocrit 42.8 % (35.0-49.0); Hemoglobin 14.6 g/dL (12.0-15.0); Mean Corpuscular HGB Conc 34.1 g/dL (32-36); Mean Corpuscular Hemoglobin 30.4 pg (27.0-31.0); Mean Corpuscular Volume 89.2 fL (78.0-102.0); Platelet Count Result 230 K/mm3 (150-420); Red Blood Count 4.80 M/mm3 (4.20-5.40); White Blood Count 4.9 K/mm3 (4.8-10.8)
[2024-10-13 08:18] LABS: Alanine Aminotransferase 27 U/L (6-35); Albumin Level 3.9 g/dL (3.5-5.1); Alkaline Phosphatase 71 U/L (38-126); Anion Gap 8 mmol/L (4-12); Aspartate Amino Transferase 25 U/L (14-36); Bilirubin,Total 0.8 mg/dL (0.2-1.3); Blood Urea Nitrogen 16 mg/dL (7-17); Calcium 8.6 mg/dL (8.4-10.2); Carbon Dioxide 19 mmol/L (22-30); Chloride 114 mmol/L (98-107); Cholesterol 228 mg/dL (0-200); Estimated Glomerular Filt Rate > 60; Glucose 144 mg/dL (65-110); HDL Direct 32 mg/dL; Magnesium 2.0 mg/dL (1.6-2.3); Osmolality Calculated 296 mOsm/kg (285-295); Potassium 3.9 mmol/L (3.4-5.0); Sodium 141 mmol/L (137-145); Total Protein 6.4 g/dL (6.3-8.2); Triglycerides 363 mg/dL (<150)
[2024-10-13 08:19] LABS: Hemoglobin A1C 6.4 % (<5.7)
[2024-10-13 08:43] LABS: Eosinophils Absolute Manual 0.58 K/mm3 (0.02-0.50); Eosinophils Percent Manual 12 % (1-6); Lymphocytes Absolute Manual 0.98 K/mm3 (1.1-4.5); Lymphocytes Percent Manual 20 % (18-44); Monocytes Absolute Manual 0.44 K/mm3 (0.1-0.90); Monocytes Percent Manual 9 % (3-9); Neutrophils Percent Manual 59 % (46-73); Total Cells Counted 100
[2024-10-13 08:44] LABS: Schistocytes None Seen
[2024-10-13 09:09] LABS: Vitamin B12 297.0 pg/mL (239-931)
[2024-10-15 15:09] LABS: Folate, Hemolysate 345.0 ng/mL (Not Estab.); Folate, RBC 819 ng/mL (>498); Hematocrit 42.1 % (34.0-46.6)
== END 2024-10-13 07:33 | disposition home or self-care (01) ==
PROVIDERS: PCP Family Medicine
DX: K91.2 Postsurgical malabsorption, not elsewhere classified (principal); Z13.21 Encounter for screening for nutritional disorder; Z98.84 Bariatric surgery status
CPT/HCPCS: 36415; 80053; 80061; 82306; 82607; 82747; 83036; 83735; 84425; 85025